=== PATIENT | female | born 1945 | race Caucasian/White ===

== ENCOUNTER 2021-03-18 08:14 | Emergency (ER) | payer MEDICARE ==
[~2021-03-18] VITALS: Ht 167.6 cm; Wt 99.8 kg
[~2021-03-18 08:14] MED LIST: ESTRADIOL1 EAC4 TD; LEVOTHYROXINE100 MCG PO; METOPROLOL SUC100 MG PO
[2021-03-18] MEDS ORDERED: CEPHALEXIN500 M1 PO (09:12)
== END 2021-03-18 09:25 | disposition home or self-care (01) ==
LOC: ED 08:14
DX: N39.0 Urinary tract infection, site not specified (principal); I10 Essential (primary) hypertension; E78.00 Pure hypercholesterolemia, unspecified; E03.9 Hypothyroidism, unspecified; Z88.2 Allergy status to sulfonamides; Z88.8 Allergy status to other drugs, medicaments and biological substances; Z88.5 Allergy status to narcotic agent; Z79.899 Other long term (current) drug therapy
CPT/HCPCS: 81001; 87088; 99283

== ENCOUNTER 2021-08-15 02:34 | Emergency (ER) | payer MEDICARE ==
[~2021-08-15] VITALS: Ht 167.6 cm; Wt 99.8 kg
[~2021-08-15 02:34] MED LIST changes: +CEPHALEXIN500 M1 PO
--- OUTSIDE RECORDS SUMMARY | 2021-08-15 02:42 | XMS ---
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 Tiraa has no Care Guidelines for this patient. Katarzyna VISIT COUNT (12 MO.) 1 [facility] Within [facility] 2 [facility] TOTAL 5 NOTE: Visits indicate total known visits. ED/C VISIT TRACKING (12 MO.) 08/15/2021 02:[address] [facility] [place] TYPE: Emergency COMPLAINT: - L SIDED SHOULDER/BACK PAIN [facility]2021 [facility] DIAGNOSES: - vag bleeding - Asymptomatic microscopic hematuria - Hematuria 06/12/2021 09[facility] DIAGNOSES: - poss kidney infection - Hematuria, unspecified - Hematuria 05/30/2021 11:26 [facility] [place] TYPE: Emergency DIAGNOSES: - Allergy status to penicillin - Allergy status to other antibiotic agents - Type 2 diabetes mellitus without complications 03/18/2021 08:15 [facility] COMPLAINT: - URINE PROBLEM DIAGNOSES: - Hypothyroidism, unspecified - Allergy status to narcotic agent - Urinary tract infection, site not specified - Pure hypercholesterolemia, unspecified - Other correction (current) drug therapy - Allergy status to sulfonamides - Dysuria - Essential (primary) hypertension - Allergy status to other drugs, medicaments and biological substances INPATIENT VISIT TRACKING (12 MO.) No inpatient visits to display in this time frame [id number]
--- NOTE | 2021-08-15 21:19 | EKG ---
[facility] [address] [place], [place] [address] Signed Normal sinus rhythm Low voltage QRS Borderline ECG No previous ECGs available Confirmed by TERESSA GODDARD DO ([id number]) on 08/15/2021 9:18:52 PM Electronically Signed By: TERESSA GODDARD DO 08/15/212118 PATIENT NAME: EMMANUELCAYLA WILLS Electrocardiogram DATE OF : 45 PHYSICIAN: TERESSA GODDARD DO REPORT #: [id number] REPORT IS CONFIDENTIAL AND NOT TO BE RELEASED WITHOUT AUTHORIZATION
== END 2021-08-15 03:52 | disposition home or self-care (01) ==
LOC: ED 02:34
DX: M25.512 Pain in left shoulder (principal); I10 Essential (primary) hypertension; E78.00 Pure hypercholesterolemia, unspecified; E03.9 Hypothyroidism, unspecified; Z88.2 Allergy status to sulfonamides; Z88.5 Allergy status to narcotic agent; Z88.8 Allergy status to other drugs, medicaments and biological substances; Z79.890 Hormone replacement therapy; Z79.899 Other long term (current) drug therapy
CPT/HCPCS: 71045; 80048; 83735; 84484; 85025; 93005; 93010; 96374; 99285-25; J1885

== ENCOUNTER 2021-10-18 19:07 | Emergency (ER) | payer MEDICARE ==
[~2021-10-18] VITALS: Ht 167.6 cm; Wt 99.8 kg
--- OUTSIDE RECORDS SUMMARY | 2021-10-18 19:10 | XMS ---
PreManage Notification: CAYLA BENITEZ Security Health Analyst Events No recent Security Events currently on file CRITERIA MET - 6 ED Visits in 6 Months - [facility] - 2 Visits in 30 Days CARE PROVIDERS There are no care providers on record at this time. Tiara has no Care Guidelines for this patient. Katarzyna VISIT COUNT (12 MO.) 1 [facility] 4 [facility] 3 [facility] TOTAL 8 NOTE: Visits indicate total known visits. ED/C VISIT TRACKING (12 MO.) 10/18/2021 19:08 [facility] [place] TYPE: Emergency COMPLAINT: - MEDICATION REACTION 10/02/2021 10:06 [facility] [place]: Emergency DIAGNOSES: - abd pain, pressure - Abdominal Pain - Unspecified abdominal pain 08/25/2021 09:39 [facility] [place] TYPE: Emergency DIAGNOSES: - Shoulder Pain - Pain in left shoulder - LT shoulder pain 08/15/2021 02:35 [facility] [place] TYPE: Emergency COMPLAINT: - L SIDED SHOULDER/BACK PAIN DIAGNOSES: - Other residential (current) drug therapy - Allergy status to narcotic agent - Hypothyroidism, unspecified - Pain in left shoulder - Pure hypercholesterolemia, unspecified - Hormone replacement therapy - Allergy status to sulfonamides - Allergy status to other drugs, medicaments and biological substances - Pain in left arm - Essential (primary) hypertension 06/17/2021 18:27 [facility] [place]: Emergency DIAGNOSES: - vag bleeding - Asymptomatic microscopic hematuria - Hematuria 06/12/2021 09:28 [facility] [place] TYPE: Emergency DIAGNOSES: - poss kidney infection - Hematuria, unspecified - Hematuria 05/30/2021 11:26 [facility] [place] TYPE: Emergency DIAGNOSES: - Allergy status to penicillin - Allergy status to other antibiotic agents - Type 2 diabetes mellitus without complications 03/18/2021 08:15 [facility] [place] TYPE: Emergency COMPLAINT: - URINE PROBLEM DIAGNOSES: - Hypothyroidism, unspecified - Allergy status to narcotic agent - Urinary tract infection, site not specified - Pure hypercholesterolemia, unspecified - Other residential (current) drug therapy - Allergy status to sulfonamides - Dysuria - Essential (primary) hypertension - Allergy status to other drugs, medicaments and biological substances INPATIENT VISIT TRACKING (12 MO.) No inpatient visits to display in this time frame [id number]
[2021-10-18] MEDS ORDERED: HYDROCODON-ACE1 EA10 PO (19:38)
== END 2021-10-18 20:00 | disposition home or self-care (01) ==
LOC: ED 19:07
DX: R09.89 Other specified symptoms and signs involving the circulatory and respiratory systems (principal); T40.425A Adverse effect of tramadol, initial encounter; Z98.890 Other specified postprocedural states; I10 Essential (primary) hypertension; E78.00 Pure hypercholesterolemia, unspecified; E03.9 Hypothyroidism, unspecified; Z88.2 Allergy status to sulfonamides; Z88.5 Allergy status to narcotic agent; Z88.8 Allergy status to other drugs, medicaments and biological substances; Z79.899 Other long term (current) drug therapy
CPT/HCPCS: 99283

== ENCOUNTER 2021-10-20 10:07 | Emergency (ER) | payer MEDICARE ==
[~2021-10-20] VITALS: Ht 167.6 cm; Wt 99.8 kg
[~2021-10-20 10:07] MED LIST changes: +HYDROCODON-ACE1 EA10 PO
--- OUTSIDE RECORDS SUMMARY | 2021-10-20 10:10 | XMS ---
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 - 2 Visits in 30 Days - 6 ED Visits in 6 Months CARE PROVIDERS There are no care providers on record at this time. Tiara has no Care Guidelines for this patient. EBrendonDBrendon VISIT COUNT (12 MO.) 1 [facility] M[facility] [address] [place] [address] 4 [facility] TOTAL 9 NOTE: Visits indicate total known visits. ED/UCC VISIT TRACKING (12 MO.) 10/20/2021 10:08 [facility]: Emergency COMPLAINT: - LOWER L ABDOMINAL PAIN 10/18/2021 19:08 [facility] [place] TYPE: Emergency COMPLAINT: - MEDICATION REACTION 10/02/2021 10:06 [facility] [place] [facility]: Emergency DIAGNOSES: - abd pain, pressure - Abdominal Pain - Unspecified abdominal pain 08/25/2021 09:39 [facility] [place] [facility]: Emergency DIAGNOSES: - Shoulder Pain - Pain in left shoulder - LT shoulder pain 08/15/2021 02:35 [facility] [place] TYPE: Emergency COMPLAINT: - L SIDED SHOULDER/BACK PAIN DIAGNOSES: - Other intermediate (current) drug therapy - Allergy status to narcotic agent - Hypothyroidism, unspecified - Pain in left shoulder - Pure hypercholesterolemia, unspecified - Hormone replacement therapy - Allergy status to sulfonamides - Allergy status to other drugs, medicaments and biological substances - Pain in left arm - Essential (primary) hypertension 06/17/2021 18:[address] [facility]: Emergency DIAGNOSES: - vag bleeding - Asymptomatic microscopic hematuria - Hematuria 06/12/2021 09:28 [facility] L[facility]un [place] TYPE: Emergency DIAGNOSES: - poss kidney infection - Hematuria, unspecified - Hematuria 05/30/2021 11:26 [facility] [place] TYPE: Emergency DIAGNOSES: - Allergy status to penicillin - Allergy status to other antibiotic agents - Type 2 diabetes mellitus without complications 03/18/2021 08:[address] [facility] [place] TYPE: Emergency COMPLAINT: - URINE PROBLEM DIAGNOSES: - Hypothyroidism, unspecified - Allergy status to narcotic agent - Urinary tract infection, site not specified - Pure hypercholesterolemia, unspecified - Other erp pm (current) drug therapy - Allergy status to sulfonamides - Dysuria - Essential (primary) hypertension - Allergy status to other drugs, medicaments and biological substances INPATIENT VISIT TRACKING (12 MO.) No inpatient visits to display in this time frame [id number]
[2021-10-20] MEDS ORDERED: CEFDINIR300 MG PO (15:49)
== END 2021-10-20 16:47 | disposition home or self-care (01) ==
LOC: ED 10:07
DX: N39.0 Urinary tract infection, site not specified (principal); I10 Essential (primary) hypertension; E78.00 Pure hypercholesterolemia, unspecified; E03.9 Hypothyroidism, unspecified; Z88.2 Allergy status to sulfonamides; Z88.5 Allergy status to narcotic agent; Z88.8 Allergy status to other drugs, medicaments and biological substances; Z79.899 Other long term (current) drug therapy
CPT/HCPCS: 81001; 87088; 96365; 96375; 99284-25; J0696; J1885

== ENCOUNTER 2024-06-29 03:03 | Emergency (ER) | payer MEDICARE ==
[~2024-06-29] VITALS: Ht 167.6 cm; Wt 98.6 kg
[~2024-06-29 03:03] MED LIST changes: +CEFDINIR300 MG PO
[2024-06-29] MEDS ORDERED: OXYBUTYNIN CHLOR5 MG (03:20)
[2024-06-29] MEDS ORDERED: METFORMIN HCL500 M1 (03:20)
[2024-06-29 03:56] LABS: BASOPHILS 0.5 % (0-2); EOSINOPHILS 0.9 % (0-6); HEMOGLOBIN 13.8 g/dL (12.0-18.0); LYMPHOCYTES 27.4 % (24-44); MCH 28.8 (27-36); MCHC 33.8 g/dl (30-36); MCV 85.2 fl (81-99); MONOCYTES 7.8 % (0-12); NEUTROPHILS 63.4 % (39-80); PLATELET COUNT 352 K/uL (140-440); RBC 4.81 M/ul (4.3-5.7); RDW 14.9 (10.5-15.0)
[2024-06-29 04:17] LABS: ALBUMIN 3.4 g/dL (3.4-5.0); ALBUMIN/GLOBULIN RATIO 0.85 (1.1-2.4); ANION GAP 12.9 (7-21); BILIRUBIN, TOTAL 0.4 ng/dL (0.2-1.0); BUN/CREATININE RATIO 11.36 (6.0-28.6); CALCIUM 8.8 mg/dL (8.5-10.1); CREATININE, SERUM 0.88 mg/dL (0.55-1.02); POTASSIUM 3.9 mmol/L (3.5-5.1); PROTEIN, TOTAL 7.4 g/dL (6.4-8.2)
[2024-06-29 04:31] VITALS: BP 137/74
[2024-06-29 04:35] LABS: BILIRUBIN, URINE NEGATIVE (negative); BLOOD/HGB, URINE NEGATIVE (Negative); KETONE, URINE NEGATIVE (Negative); LEUK ESTERASE, URINE NEGATIVE (negative); NITRITE, URINE NEGATIVE (negative); PH, URINE 5.5 (5-7)
[2024-06-29 04:44] LABS: BACTERIA, URINE RARE /hpf (negative); CASTS, URINE NONE SEEN \\lpf; COLLECTION TYPE, URINE CLEAN CATCH; CRYSTALS, URINE NONE SEEN (0-1+); EPITHELIAL CELLS, URINE SQUAMOUS 1+ /lpf (0-1+); RED BLOOD CELLS, URINE 0-1 /hpf (0-5); REFLEX CULTURE, URINE No (No)
--- NOTE | 2024-06-29 21:58 | EKG ---
[facility] [address] [facility] [address] [place] [address] Signed Normal sinus rhythm Low voltage QRS Borderline ECG When compared with ECG of 15-AUG-2021 02:40, No significant change was found Confirmed by Damien Anne MD () on 06/29/2024 9:58:07 PM Electronically Signed By: DAMIEN ANNE MD 06/29/24 2158 PATIENT NAME: EMMANUELCAYLA Electrocardiogram DATE OF : 45 PHYSICIAN: DAMIEN ANNE MD REPORT #: [id number] REPORT IS CONFIDENTIAL AND NOT TO BE RELEASED WITHOUT AUTHORIZATION
== END 2024-06-29 04:34 | disposition home or self-care (01) ==
LOC: ED 03:03
PROVIDERS: Emergency Medicine
DX: R06.02 Shortness of breath (principal); I10 Essential (primary) hypertension; E11.9 Type 2 diabetes mellitus without complications; E03.9 Hypothyroidism, unspecified; E78.00 Pure hypercholesterolemia, unspecified; Z88.2 Allergy status to sulfonamides; Z88.5 Allergy status to narcotic agent; Z88.8 Allergy status to other drugs, medicaments and biological substances; Z79.84 Long term (current) use of oral hypoglycemic drugs; Z79.890 Hormone replacement therapy; Z79.899 Other long term (current) drug therapy
CPT/HCPCS: 36415; 71045; 80053; 81001; 83880; 84484; 85025; 93005; 93010; 99285-25

== ENCOUNTER 2024-08-03 07:02 | Emergency (ER) | payer MEDICARE ==
[~2024-08-03] VITALS: Ht 167.6 cm; Wt 96.6 kg
[~2024-08-03 07:02] MED LIST changes: +METFORMIN HCL500 M1; +OXYBUTYNIN CHLOR5 MG
--- OUTSIDE RECORDS SUMMARY | 2024-08-03 07:03 | XMS ---
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 Tiara has no Care Guidelines for this patient. Katarzyna VISIT COUNT (12 MO.) 3 [facility]a [facility] ([facility] Wilks) 2 [facility] TOTAL 5 NOTE: Visits indicate total known visits. ED/[facility] VISIT TRACK[facility] (12 MO.) 08/03/2024 07:02 [facility] [place] [facility] COMPLAINT: - BLOOD PRESSURE PROBLEM 08/02/2024 09:13 [facility] Lashaun [place] (Lashaun Wilks) TYPE: Emergency DIAGNOSES: - Procedure and treatment not carried out due to patient leaving prior to being seen by health care provider - hot flashes - Sweats 06/29/2024 03:04 [facility] [address] 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 - Pure hypercholesterolemia, unspecified - Shortness of breath - Type 2 diabetes mellitus without complications 04/15/2024 10:21 [facility] [place]un [place] ([place]) TYPE: Emergency DIAGNOSES: - Type 2 diabetes mellitus with hyperosmolarity without nonketotic hyperglycemic-hyperosmolar coma ([facility]) - Type 2 diabetes mellitus with hyperosmolarity without nonketotic hyperglycemic-hyperosmolar coma ([facility]) - high blood sugar - High Blood Sugar (Symptomatic) 10/22/2023 08:41 [facility] [place]un [place] (Lashaun Wilks) TYPE: Emergency DIAGNOSES: - Chest pain, unspecified - Back Pain - back pain, poss sinus inf INPATIENT VISIT TRACKING (12 MO.) No inpatient visits to display in this time frame [id number]
[2024-08-03] MEDS ORDERED: METOPROLOL SUCCINATE 50 MG TABCR PO ONE (07:30)
[2024-08-03 08:41] LABS: BASOPHILS 0.6 % (0-2); EOSINOPHILS 0.6 % (0-6); HEMATOCRIT 41.7 % (35.0-50.0); LYMPHOCYTES 24.8 % (24-44); MCH 28.5 (27-36); MCHC 33.5 g/dl (30-36); MCV 85.2 fl (81-99); MONOCYTES 7.4 % (0-12); NEUTROPHILS 66.6 % (39-80); PLATELET COUNT 351 K/uL (140-440); RDW 14.8 (10.5-15.0)
[2024-08-03 09:08] LABS: ALBUMIN 3.3 g/dL (3.4-5.0); ALBUMIN/GLOBULIN RATIO 0.85 (1.1-2.4); ANION GAP 13.2 (7-21); BILIRUBIN, TOTAL 0.5 ng/dL (0.2-1.0); BUN/CREATININE RATIO 11.11 (6.0-28.6); CALCIUM 8.9 mg/dL (8.5-10.1); CREATININE, SERUM 0.9 mg/dL (0.55-1.02); POTASSIUM 4.2 mmol/L (3.5-5.1); PROTEIN, TOTAL 7.2 g/dL (6.4-8.2); TSH, 3RD GENERATION 2.135 uIU/mL (0.358-3.740)
[2024-08-03 09:24] VITALS: BP 167/71
--- NOTE | 2024-08-07 10:08 | EKG ---
[facility] [address] [place] [address] Signed Normal sinus rhythm Low voltage QRS Borderline ECG When compared with ECG of 29-JUN-2024 03:45, No significant change was found Confirmed by Christal Lara DO ([id number]) on 08/07/2024 10:07:47 AM Electronically Signed By: CHRISTAL LARA DO 08/07/24 1008 PATIENT NAME: CAYLA BENITEZ Electrocardiogram DATE OF : 45 PHYSICIAN: CHRISTAL LARA DO REPORT #: [id number] REPORT IS CONFIDENTIAL AND NOT TO BE RELEASED WITHOUT AUTHORIZATION
== END 2024-08-03 09:25 | disposition home or self-care (01) ==
LOC: ED 07:02
PROVIDERS: Emergency Medicine
DX: I10 Essential (primary) hypertension (principal); R23.2 Flushing; E78.00 Pure hypercholesterolemia, unspecified; E03.9 Hypothyroidism, unspecified; E11.9 Type 2 diabetes mellitus without complications; Z88.2 Allergy status to sulfonamides; Z88.5 Allergy status to narcotic agent; Z88.8 Allergy status to other drugs, medicaments and biological substances; Z79.84 Long term (current) use of oral hypoglycemic drugs; Z79.890 Hormone replacement therapy; Z79.899 Other long term (current) drug therapy
CPT/HCPCS: 36415; 80053; 84443; 85025; 93005; 93010; 99283